=== PATIENT | female | born 1965 | race Caucasian/White ===

== ENCOUNTER 2017-07-14 19:45 | Observation (INO) | payer SELFPAY, OTHER ==
[2017-07-14 22:34] LABS: ADD MAN DIFF? NO
[2017-07-14] MEDS: SOD CHLORIDE 0.9% 1,000 ML IV ×2 (22:34→23:46)
[2017-07-14 22:35] LABS: WHITE BLOOD COUNT 15.3 10^3/ul (4.8-10.8)
[2017-07-14 22:35] LABS: BASOPHIL # 0.1 10^3/ul (0.0-0.1); BASOPHILS % 0.4 % (0.0-2.0); HEMATOCRIT 39.1 % (37.0-47.0); HEMOGLOBIN 13.6 g/dl (12.0-16.0); LYMPHOCYTES # 1.5 10^3/ul (0.8-2.9); LYMPHOCYTES % 9.5 % (15.0-51.0); MEAN CORPUSCULAR HGB CONC 34.8 g/dl (32.0-37.0); MEAN CORPUSCULAR VOLUME 89.1 fl (82.0-101.0); MEAN PLATELET VOLUME 10.5 fl (7.4-10.4); MONOCYTE # 0.6 10^3/ul (0.3-0.9); NEUTROPHIL # 13.1 10^3/ul (1.6-7.5); NEUTROPHILS % 85.5 % (39.0-77.0); PLATELET COUNT 268 10^3/UL (140-415); RED BLOOD COUNT 4.39 10^6/ul (4.20-5.40)
[2017-07-14] MEDS: ONDANSETRON 4 MG INJ IV (22:35)
[2017-07-14] MEDS: morphine 4 MG/ML VIAL IV (22:35)
[2017-07-14] MEDS: FAMOTIDINE 20 MG INJ IV (22:35)
[2017-07-14 22:39] LABS: ADD UMIC NO; UR ASCORBIC ACID NEGATIVE (NEGATIVE); UR BILIRUBIN (Dip) NEGATIVE (NEGATIVE); UR BLOOD (Dip) NEGATIVE (NEGATIVE); UR CLARITY CLEAR (CLEAR); UR COLOR STRAW (YELLOW); UR GLUCOSE (Dip) 3+ mg/dL (NEGATIVE); UR KETONES (Dip) 1+ mg/dL (NEGATIVE); UR LEUKOCYTE ESTERASE (Dip) NEGATIVE Leu/ul (NEGATIVE); UR NITRITE (Dip) NEGATIVE (NEGATIVE); UR TOTAL PROTEIN (Dip) NEGATIVE (NEGATIVE); UR UROBILINOGEN (Dip) NEGATIVE (NEGATIVE)
[2017-07-14 22:57] LABS: ALANINE AMINOTRANSFERASE 26 IU/L (13-69); ALBUMIN 4.3 g/dl (3.3-4.9); ALBUMIN/GLOBULIN RATIO 1.07; ALKALINE PHOSPHATASE 153 IU/L (42-121); ANION GAP 19 (8-16); ASPARTATE AMINO TRANSFERASE 22 IU/L (15-46); BILIRUBIN,INDIRECT 0.7 mg/dl (0-1.1); BILIRUBIN,TOTAL 0.7 mg/dl (0.2-1.3); BLOOD UREA NITROGEN 15 mg/dl (7-20); CARBON DIOXIDE 22 mmol/L (21-31); CHLORIDE 95 mmol/L (97-110); POTASSIUM 4.7 mmol/L (3.5-5.1); SODIUM 131 mmol/L (135-144); TOTAL PROTEIN 8.3 g/dl (6.1-8.1)
[2017-07-14 23:14] LABS: GLUCOSE 652 mg/dl (70-220)
[2017-07-15] MEDS: SOD CHLORIDE 0.9% 1,000 ML IV ×4 (01:22→22:27)
[2017-07-15] MEDS: LIDOCAINE/MYLANTA 40 ML BTL PO (01:54)
[2017-07-15] MEDS ORDERED: NACL 0.9% 3 ML SYG IV (02:30)
[2017-07-15] MEDS ORDERED: BISACODYL (EC) 5 MG TAB PO (02:30)
[2017-07-15] MEDS ORDERED: DOCUSATE SODIUM 100 MG CAP PO (02:30)
[2017-07-15] MEDS ORDERED: GLUCOSE GEL 15 GRAM TUBE PO ×2 (03:00)
[2017-07-15] MEDS ORDERED: GLUCAGON 1 MG INJ IM (03:00)
[2017-07-15] MEDS ORDERED: DEXTROSE 50% 50 ML SYRINGE IV ×2 (03:00)
[2017-07-15] MEDS ORDERED: GLUCOSE GEL 15 GRAM TUBE BUCCAL (03:00)
[2017-07-15 06:48] LABS: ADD MAN DIFF? NO
[2017-07-15 07:02] LABS: BASOPHILS % 0.3 % (0.0-2.0); HEMATOCRIT 37.2 % (37.0-47.0); HEMOGLOBIN 12.5 g/dl (12.0-16.0); LYMPHOCYTES # 1.6 10^3/ul (0.8-2.9); LYMPHOCYTES % 10.8 % (15.0-51.0); MEAN CORPUSCULAR HEMOGLOBIN 30.9 pg (29.0-33.0); MEAN CORPUSCULAR HGB CONC 33.6 g/dl (32.0-37.0); MEAN CORPUSCULAR VOLUME 92.1 fl (82.0-101.0); MEAN PLATELET VOLUME 10.4 fl (7.4-10.4); MONOCYTES % 6.9 % (0.0-11.0); NEUTROPHIL # 11.9 10^3/ul (1.6-7.5); NEUTROPHILS % 81.5 % (39.0-77.0); PLATELET COUNT 239 10^3/UL (140-415); RED BLOOD COUNT 4.04 10^6/ul (4.20-5.40); RED CELL DISTRIBUTION WIDTH 12.2 % (11.5-14.5)
[2017-07-15 07:02] LABS: WHITE BLOOD COUNT 14.6 10^3/ul (4.8-10.8)
[2017-07-15 07:12] LABS: ALANINE AMINOTRANSFERASE 29 IU/L (13-69); ALBUMIN 3.7 g/dl (3.3-4.9); ALBUMIN/GLOBULIN RATIO 0.97; ALKALINE PHOSPHATASE 121 IU/L (42-121); ANION GAP 16 (8-16); ASPARTATE AMINO TRANSFERASE 21 IU/L (15-46); BILIRUBIN,INDIRECT 0.6 mg/dl (0-1.1); BILIRUBIN,TOTAL 0.6 mg/dl (0.2-1.3); BLOOD UREA NITROGEN 11 mg/dl (7-20); CALCIUM 8.9 mg/dl (8.4-10.2); CARBON DIOXIDE 21 mmol/L (21-31); CHLORIDE 108 mmol/L (97-110); CHOL/HDL RATIO 3.2 RATIO; CHOLESTEROL 224 mg/dl (100-200); CREATININE 0.49 mg/dl (0.44-1.00); GLUCOSE 345 mg/dl (70-220); HDL CHOLESTEROL 69 mg/dl (37-92); LDL CHOLESTEROL,CALCULATED 119 mg/dl; POTASSIUM 4.1 mmol/L (3.5-5.1); SODIUM 141 mmol/L (135-144); TOTAL PROTEIN 7.5 g/dl (6.1-8.1); TRIGLYCERIDES 180 mg/dl (0-149)
[2017-07-15 07:41] LABS: THYROID STIMULATING HORMONE 0.574 MIU/L (0.465-4.680)
[2017-07-15] MEDS: INSULIN GLARGINE [LANtus] 3 ML PEN SC (08:09)
[2017-07-15] MEDS: RANITIDINE 150 MG TAB PO ×2 (08:31→20:16)
[2017-07-15] MEDS: INSULIN ASPART [NOVOLOG] 3 ML PEN SC ×4 (10:20→20:21)
[2017-07-15] MEDS: ONDANSETRON 4 MG INJ IV (16:49)
[2017-07-15] MEDS: metFORMIN 850 MG TAB PO (17:34)
[2017-07-15] MEDS: NPH, HUMAN INSULIN ISOPHANE 3ML VIAL SC (20:18)
[2017-07-15] MEDS: ACETAMINOPHEN 325 MG TAB PO (20:29)
[2017-07-16] MEDS: ACCU-CHEK XX (02:12)
[2017-07-16] MEDS: RANITIDINE 150 MG TAB PO ×2 (08:21→21:46)
[2017-07-16] MEDS: metFORMIN 850 MG TAB PO ×2 (08:21→17:29)
[2017-07-16] MEDS: INSULIN ASPART [NOVOLOG] 3 ML PEN SC ×4 (08:22→21:48)
[2017-07-16] MEDS: NPH, HUMAN INSULIN ISOPHANE 3ML VIAL SC ×2 (08:23→21:48)
[2017-07-16] MEDS: SOD CHLORIDE 0.9% 1,000 ML IV ×3 (08:24→18:27)
[2017-07-16] MEDS: ONDANSETRON 4 MG INJ IV (15:51)
[2017-07-16 16:37] LABS: ADD UMIC YES; UR ASCORBIC ACID NEGATIVE (NEGATIVE); UR BACTERIA FEW /HPF (NONE SEEN); UR BILIRUBIN (Dip) NEGATIVE (NEGATIVE); UR BLOOD (Dip) NEGATIVE (NEGATIVE); UR CLARITY SLIGHTLY CLOUDY (CLEAR); UR COLOR YELLOW (YELLOW); UR GLUCOSE (Dip) 3+ mg/dL (NEGATIVE); UR KETONES (Dip) 1+ mg/dL (NEGATIVE); UR LEUKOCYTE ESTERASE (Dip) NEGATIVE Leu/ul (NEGATIVE); UR MUCUS FEW /HPF (NONE SEEN); UR NITRITE (Dip) POSITIVE (NEGATIVE); UR RBC 1 /HPF (0-5); UR TOTAL PROTEIN (Dip) NEGATIVE (NEGATIVE); UR UROBILINOGEN (Dip) NEGATIVE (NEGATIVE); UR WBC 6 /HPF (0-5)
[2017-07-16] MEDS: ACETAMINOPHEN 325 MG TAB PO (17:31)
[2017-07-17] MEDS: ACCU-CHEK XX (02:00)
[2017-07-17] MEDS: SOD CHLORIDE 0.9% 1,000 ML IV ×2 (04:40→12:18)
[2017-07-17] MEDS: metFORMIN 850 MG TAB PO (08:14)
[2017-07-17] MEDS: INSULIN ASPART [NOVOLOG] 3 ML PEN SC ×2 (08:15→11:45)
[2017-07-17] MEDS: NPH, HUMAN INSULIN ISOPHANE 3ML VIAL SC (08:17)
[2017-07-17] MEDS: RANITIDINE 150 MG TAB PO (08:17)
[2017-07-17] MEDS: ONDANSETRON 4 MG INJ IV (08:22)
[2017-07-18 17:52] LABS: CREATININE, RANDOM URINE 46 mg/dL (20-320); MICROALBUMIN 1.9 mg/dL; MICROALBUMIN/CREATININE RATIO 41 (<30)
== END 2017-07-17 14:10 | disposition home or self-care (01) ==
LOC: MS3 07-15 01:21 → FTE 19:45
DX: K21.9 Gastro-esophageal reflux disease without esophagitis (principal); E11.65 Type 2 diabetes mellitus with hyperglycemia; E87.1 Hypo-osmolality and hyponatremia; D72.829 Elevated white blood cell count, unspecified; R51 Headache; Z79.84 Long term (current) use of oral hypoglycemic drugs; Z79.4 Long term (current) use of insulin; Z83.3 Family history of diabetes mellitus; Z82.49 Family history of ischemic heart disease and other diseases of the circulatory system
CPT/HCPCS: 36415; 70450; 71045; 80053; 80061; 81001; 81003; 82043; 82962; 83036; 83735; 84443; 85025; 87400; 93005; 96361; 96374; 96375; 99285-25